=== PATIENT | female | born 1990 ===

== ENCOUNTER 2021-03-31 13:34 | Outpatient (CLI) | payer OTHER | END 2021-04-01 15:47 | disposition home or self-care (01) | LOC: SONOGRAMA 13:34 | PROVIDERS: ATTEND Obstetrics & Gynecology | DX: E04.1 Nontoxic single thyroid nodule (principal) ==

== ENCOUNTER 2021-07-29 10:16 | Outpatient (CLI) | payer OTHER | END 2021-07-29 11:00 | disposition home or self-care (01) | LOC: PRENATAL 10:16 | PROVIDERS: ATTEND Obstetrics & Gynecology Maternal & Fetal Medicine | DX: O26.843 Uterine size-date discrepancy, third trimester (principal); O35.0XX1 Maternal care for (suspected) central nervous system malformation in fetus, fetus 1; O99.891 Other specified diseases and conditions complicating pregnancy; Z36.89 Encounter for other specified antenatal screening; Z3A.32 32 weeks gestation of pregnancy ==

== ENCOUNTER 2021-08-22 12:15 | Inpatient (IN) | payer OTHER ==
[~2021-08-22] VITALS: Ht 172.7 cm; Wt 78.5 kg
[2021-10-02] MEDS ORDERED: PRENATAL CAPLE1 EAC1 PO (15:00)
[2021-10-02] MEDS ORDERED: TAPAZOLE5 MG PO (15:00)
== END 2021-10-05 13:10 | disposition home or self-care (01) | DRG 807 ==
LOC: SURH 09-27 12:15 → LDR 10-02 13:17 → OB/GYN 10-02 13:17
PROVIDERS: ADMIT Obstetrics & Gynecology; ATTEND Obstetrics & Gynecology
PROC: 3E033VJ Introduction of Other Hormone into Peripheral Vein, Percutaneous Approach (ICD-10-PCS; 2021-10-02)
PROC: 4A1HXFZ Monitoring of Products of Conception, Cardiac Rhythm, External Approach (ICD-10-PCS; 2021-10-02)
PROC: 10E0XZZ Delivery of Products of Conception, External Approach (ICD-10-PCS; principal; 2021-10-03)
PROC: 0W8NXZZ Division of Female Perineum, External Approach (ICD-10-PCS; principal; 2021-10-03)
PROC: 10907ZC Drainage of Amniotic Fluid, Therapeutic from Products of Conception, Via Natural or Artificial Opening (ICD-10-PCS; 2021-10-03)
DX: O41.03X0 Oligohydramnios, third trimester, not applicable or unspecified (principal); Z37.0 Single live birth; O99.284 Endocrine, nutritional and metabolic diseases complicating childbirth; E05.00 Thyrotoxicosis with diffuse goiter without thyrotoxic crisis or storm; Z3A.40 40 weeks gestation of pregnancy

== ENCOUNTER 2021-09-01 10:54 | Outpatient (CLI) | payer OTHER | END 2021-09-01 11:06 | disposition home or self-care (01) | LOC: SONOGRAMA 10:54 | PROVIDERS: ATTEND Internal Medicine | DX: E04.2 Nontoxic multinodular goiter (principal); R22.1 Localized swelling, mass and lump, neck ==

== ENCOUNTER 2022-04-29 11:35 | Outpatient (CLI) | payer OTHER ==
[~2022-04-29 11:35] MED LIST: PRENATAL CAPLE1 EAC1 PO; TAPAZOLE5 MG PO
== END 2022-04-29 11:54 | disposition home or self-care (01) ==
LOC: SONOGRAMA 11:35
PROVIDERS: ATTEND Internal Medicine
DX: E04.2 Nontoxic multinodular goiter (principal); R22.1 Localized swelling, mass and lump, neck

== ENCOUNTER 2022-10-15 12:26 | Outpatient (CLI) | payer OTHER | END 2022-10-15 12:30 | disposition home or self-care (01) | LOC: SONOGRAMA 12:26 | PROVIDERS: ATTEND Internal Medicine | DX: E04.2 Nontoxic multinodular goiter (principal); R22.1 Localized swelling, mass and lump, neck ==